=== PATIENT | female | born 1980 | race Caucasian/White ===

== ENCOUNTER → 2016-06-05 | Outpatient (CLI) | payer OTHER ==
[~2016-06-05] MED LIST: ENDOCET 5-3251 EACH PO
== END | disposition home or self-care (01) ==
LOC: CDC 14:15
DX: Z01.810 Encounter for preprocedural cardiovascular examination (principal); R00.1 Bradycardia, unspecified; S83.241D Other tear of medial meniscus, current injury, right knee, subsequent encounter; M22.41 Chondromalacia patellae, right knee; M25.561 Pain in right knee
CPT/HCPCS: 93000

== ENCOUNTER → 2016-06-13 | Outpatient (CLI) | payer OTHER | END | disposition home or self-care (01) | LOC: RES 06-09 10:00 | DX: R06.2 Wheezing (principal) | CPT/HCPCS: 94010; 94070; 94726; 94729 ==

== ENCOUNTER 2017-10-16 20:38 | Emergency (ER) | payer OTHER ==
[~2017-10-16] VITALS: Ht 152.4 cm; Wt 65.7 kg
[2017-10-16 21:04] LABS: HEMATOCRIT 43.1 % (36.0-46.0); HEMOGLOBIN 15.3 G/DL (11.9-15.5); MCHC 35.5 G/DL (30.0-36.0); MCV 90.2 FL (83-99); RBC DIS.WIDTH-CV 12.7 % (11.8-14.6); RBC DIS.WIDTH-SD 42.2 % (39-53); RED BLOOD COUNT 4.78 M/uL (3.80-5.20); WHITE BLOOD COUNT 18.9 K/uL (4.1-10.2)
[2017-10-16 21:16] LABS: CHLORIDE 106 mEq/L (99-109); POTASSIUM 4.3 mEq/L (3.7-5.4); SODIUM 138 mEq/L (136-147)
[2017-10-16 21:18] LABS: GLUCOSE 231 mg/dL (70-99)
[2017-10-16 21:22] LABS: CREATININE 0.9 mg/dL (0.6-1.3); GFR ESTIMATE (CALCULATED) > 59 mL/min/; UREA NITROGEN (BUN) 13 mg/dL (9-23)
[2017-10-16] MEDS ORDERED: DUONEB 2.5-0.5 M3 ML AEROSOL (21:23)
[2017-10-16] MEDS ORDERED: ZITHROMAX Z-PA250 MG PO (21:23)
[2017-10-16] MEDS ORDERED: ROBITUSSIN AC,T10 ML PO (21:45)
[2017-10-16 22:05] VITALS: BP 143/89
[2017-10-16 22:06] LABS: PLATELET COUNT 212 K/uL (156-360)
== END 2017-10-16 22:06 | disposition home or self-care (01) ==
LOC: EME 20:38
DX: J40 Bronchitis, not specified as acute or chronic (principal); F17.200 Nicotine dependence, unspecified, uncomplicated; F32.9 Major depressive disorder, single episode, unspecified; M79.7 Fibromyalgia; Z91.040 Latex allergy status
CPT/HCPCS: 71046; 80048; 85027; 94640; 99281; 99284; J2930

== ENCOUNTER 2017-11-19 19:30 | Emergency (ER) | payer OTHER ==
[~2017-11-19] VITALS: Ht 152.4 cm; Wt 65.9 kg
[~2017-11-19 19:30] MED LIST changes: +DUONEB 2.5-0.5 M3 ML AEROSOL; +ROBITUSSIN AC,T10 ML PO; +ZITHROMAX Z-PA250 MG PO
[2017-11-19 21:00] LABS: APPEARANCE CLEAR ((CLEAR)); BILIRUBIN NEGATIVE; BLOOD MODERATE; COLOR YELLOW ((YELLOW)); GLUCOSE (STRIP) NEGATIVE; KETONES NEGATIVE; LEUKOCYTES NEGATIVE; NITRITE NEGATIVE; PROTEIN (STRIP) NEGATIVE; SPECIFIC GRAVITY 1.013 (1.000-1.030); UROBILINOGEN 0.2 MG/DL (0.2-1.0)
[2017-11-19 21:14] LABS: BACTERIA NONE SEEN /HPF; EPITHELIAL CELLS RARE /HPF; MUCUS TRACE /LPF; UCUL ADDED? NO; WHITE BLOOD CELLS 0-5 /HPF (0-5)
[2017-11-19] MEDS ORDERED: LIDODERM 5% P1 PATCH TD (21:27)
[2017-11-19] MEDS ORDERED: VALIUM5 MG PO (21:27)
[2017-11-19] MEDS ORDERED: NAPROSYN500 MG PO (21:27)
[2017-11-19] MEDS ORDERED: MEDROL DOSEPAK4 MG PO (22:21)
[2017-11-19 22:26] VITALS: BP 100/55
== END 2017-11-19 22:27 | disposition home or self-care (01) ==
LOC: EME 19:30
PROVIDERS: Nurse Practitioner Family
DX: M54.5 Low back pain (principal); M54.16 Radiculopathy, lumbar region; M79.604 Pain in right leg; M79.605 Pain in left leg; Z98.51 Tubal ligation status; F17.200 Nicotine dependence, unspecified, uncomplicated
CPT/HCPCS: 72100; 81003; 99281; 99284